=== PATIENT | male | born 1940 | race Caucasian/White ===

== ENCOUNTER → 2018-01-03 | Outpatient (CLI) | payer MEDICARE, OTHER ==
[~2018-01-03] MED LIST: IOPAMIDOL-370 100 ML VIAL IV ONE; ISOVUE-370 50ML VIAL IV ONE
== END | disposition home or self-care (01) ==
LOC: OIH 07:49
PROVIDERS: ATTEND Internal Medicine Cardiovascular Disease
DX: I70.0 Atherosclerosis of aorta (principal); I73.9 Peripheral vascular disease, unspecified; K44.9 Diaphragmatic hernia without obstruction or gangrene; K57.30 Diverticulosis of large intestine without perforation or abscess without bleeding
CPT/HCPCS: 75635; Q9967 ×2

== ENCOUNTER 2018-07-24 05:30 | Day surgery (SDC) | payer OTHER ==
[2018-07-20 12:25] VITALS: BP 160/50
[2018-07-20 12:35] LABS: BASOPHILS % (AUTO) 0.3 % (0.0-5.0); EOSINOPHILS % (AUTO) 3.4 % (0.0-8.0); HEMATOCRIT 37.2 % (42-54); LYMPHOCYTES % (AUTO) 16.6 % (21.0-51.0); MEAN CORPUSCULAR HEMOGLOBIN 31.4 pg (27.0-33.0); MEAN CORPUSCULAR HGB CONC 33.2 g/dL (32.0-36.0); MEAN CORPUSCULAR VOLUME 94.4 fL (79-99); MONOCYTES % (AUTO) 8.7 % (3.0-13.0); NUCLEATED RED BLOOD CELLS 0.1 % (0.0-0.19); PLATELET COUNT (AUTO) 242 K/uL (130-400); RED BLOOD CELL COUNT(AUTO) 3.93 MIL/uL (4.50-6.20); RED CELL DISTRIBUTION WIDTH 13.6 % (11.0-15.5); WHITE BLOOD COUNT (AUTO) 10.2 K/uL (4.8-10.8)
[2018-07-20 12:36] LABS: APPEARANCE,URINE Clear (CLEAR); BILIRUBIN,URINE Negative (NEGATIVE); COLOR,URINE Yellow (YELLOW); GLUCOSE, URINE (UA) Negative (NEGATIVE); KETONES,URINE Negative (NEGATIVE); LEUKOCYTE ESTERASE ,URINE Negative (NEGATIVE); NITRATE,URINE Negative (NEGATIVE); OCCULT BLOOD,URINE Negative (NEGATIVE); PH,URINE 6.5 (5.0-8.0); PROTEIN,URINE Negative (NEGATIVE); UROBILINOGEN,URINE 0.2 mg/dL (0.2-1.0)
[2018-07-20 12:41] LABS: CREATININE 1.3 mg/dL (0.5-1.5); POTASSIUM 4.6 mmol/L (3.5-5.1)
[2018-07-20 12:44] LABS: INR 0.97 (0.85-1.15); PARTIAL THROMBOPLASTIN TIME 33.4 SEC (26.3-35.5); PROTHROMBIN TIME 10.2 SEC (9.6-11.6)
[2018-07-24] VITALS (10 sets, daily range): BP systolic 129–154; BP diastolic 53–70
[~2018-07-24] VITALS: Ht 177.8 cm; Wt 76.3 kg
[~2018-07-24 05:30] MED LIST changes: +AMLO10TA6 PO; +ASPI-1181 PO; +CILO100T PO; -IOPAMIDOL-370 100 ML VIAL IV ONE; -ISOVUE-370 50ML VIAL IV ONE; +LISI40TA4 PO; +NEXIUM PO; +PRAV80TA21 PO; +SODIUM CHLORIDE 0.9% 500ML 500 ML IV SCH
[2018-07-24] MEDS ORDERED: SODIUM CHLORIDE 0.9% 1000ML 1,000 ML IV ONE (06:07)
[2018-07-24] MEDS ORDERED: LIDOCAINE HCL 2% 20ML ONE (07:09)
[2018-07-24] MEDS ORDERED: HEPARIN SODIUM 1000UNIT/ML 10ML VIAL ONE (07:09)
[2018-07-24] MEDS ORDERED: IODIXANOL 320 MG/ML 100 ML VIAL ONE (07:09)
[2018-07-24] MEDS ORDERED: NITROGLYCERIN 5 MG/ML 10 ML VIAL IV ONE (07:09)
[2018-07-24] MEDS ORDERED: SODIUM BICARB 50MEQ 50ML VIAL ONE (07:33)
[2018-07-24] MEDS ORDERED: MIDAZOLAM HCL 1 MG/ML 2ML VIAL ONE ×3 (07:54→08:50)
[2018-07-24] MEDS ORDERED: ONDANSETRON HCL 4 MG/2 ML VIAL ONE (07:55)
[2018-07-24] MEDS ORDERED: FENTANYL CITRATE PF 50 MCG/1 ML 2ML VIAL ONE (07:55)
[2018-07-24] MEDS ORDERED: CLOPIDOGREL BISULFATE 300 MG TAB ONE (09:08)
[2018-07-24] MEDS ORDERED: ASPIRIN 81MG TAB.CHEW ONE (09:08)
[2018-07-24] MEDS ORDERED: SODIUM CHLORIDE 0.9% 1000ML 1,000 ML IV SCH (09:39)
== END 2018-07-24 14:12 | disposition home or self-care (01) ==
LOC: DAH 05:30
PROVIDERS: ATTEND Internal Medicine Cardiovascular Disease
DX: I70.213 Atherosclerosis of native arteries of extremities with intermittent claudication, bilateral legs (principal); I70.0 Atherosclerosis of aorta; I70.1 Atherosclerosis of renal artery; I10 Essential (primary) hypertension; E78.5 Hyperlipidemia, unspecified; Z87.891 Personal history of nicotine dependence; Z82.49 Family history of ischemic heart disease and other diseases of the circulatory system; Z98.890 Other specified postprocedural states; Z79.899 Other long term (current) drug therapy; Z98.49 Cataract extraction status, unspecified eye; Z88.8 Allergy status to other drugs, medicaments and biological substances; Z79.01 Long term (current) use of anticoagulants; I45.10 Unspecified right bundle-branch block
CPT/HCPCS: 36415 ×2; 37226; 37230; 71045; 75625; 75716; 80048; 81003; 85025; 85347; 85610; 85730; 93005; A4606; C1725 ×2; C1760 ×2; C1769 ×2; C1874 ×2; C1893; C1894; J1644 ×2; J2250 ×3; J2405; J3010; J3490 ×3; J7030; Q9967; 99156; 99157